=== PATIENT | female | born 1990 | race Caucasian/White ===

== ENCOUNTER 2019-11-09 11:48 | Emergency (ER) | payer OTHER, SELFPAY ==
--- NOTE | ~2019-11-09 | XR_ITS ---
EXAMINATION: XR elbow LT min 3V DATE: 11/09/2019 12:22 INDICATION: Left elbow pain. Injury. TECHNIQUE: 4 views of left elbow were obtained. COMPARISON: None. FINDINGS: Bone alignment is normal. No fracture. Joint spaces are well maintained. There is no elbow joint effusion. IMPRESSION: 1. Normal left elbow. Reviewed, dictated and finalized at location A. IMPRESSION: 1. Normal left elbow.
[2019-11-09 11:58] VITALS: BP 117/72; PULSE 107; RESP 17; TEMP 36.4; O2SAT 99
[2019-11-09] MEDS: IBUPROFEN 600 MG TABLET PO (12:04)
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
[2019-11-09 13:09] VITALS: BP 116/78; PULSE 101; RESP 16; O2SAT 100
== END 2019-11-09 13:10 | disposition home or self-care (01) ==
PROVIDERS: Emergency Provider Emergency Medicine
DX: S50.02XA Contusion of left elbow, initial encounter (principal); Y04.2XXA Assault by strike against or bumped into by another person, initial encounter
CPT/HCPCS: 73080; 99283; A9270

== ENCOUNTER 2021-12-13 11:12 | Emergency (ER) | payer BC, OTHER, SELFPAY ==
[2021-12-13 11:24] VITALS: BP 104/65; PULSE 64; RESP 18; TEMP 36.3; O2SAT 100
--- NOTE | 2021-12-13 12:15 | ED.GENADULT ---
HPI - General Adult General Chief complaint: Dental/Oral Stated complaint: Gum pain, swollen Source: patient Mode of arrival: ambulatory History of Present Illness HPI narrative: Patient presents for evaluation of left lower dental pain for the last 2 days. She had a dental extraction performed 2 days ago. She was not given antibiotics. She states in the past amoxicillin has caused vaginal candidiasis. Clindamycin has been effective in the past. She reports constant, throbbing, 7 out of 10 pain in the left side of her jaw with radiation into her neck. No fever, chills, nausea, vomiting. History of tubal ligation. She is taking [id number] anti-inflammatories without considerable improvement in her symptoms or after. No additional complaints or concerns Related Data Home Medications Medication Instructions Recorded Confirmed citalopram 40 mg tablet (Celexa) 40 mg PO DAILY 12/13/21 12/13/21 Allergies Allergy/AdvReac Type Severity Reaction Status Date / Time No Known Allergies Allergy Verified 12/13/21 11:53 Review of Systems Review of Systems: CONSTITUTIONAL: Denies fever, chills, or sweats. EYES: Denies visual changes, redness, or discharge. ENT: Reports left lower dental pain and jaw pain. Denies rhinorrhea, congestion, sore throat, or otalgia. CARDIOVASCULAR: Denies chest pain, palpitations, or edema. RESPIRATORY: Denies cough or dyspnea. GASTROINTESTINAL: Denies abdominal pain, nausea, vomiting, or diarrhea. GENITOURINARY: Denies dysuria or hematuria. SKIN: Denies rash or itching. MUSCULOSKELETAL: Denies back pain, joint pain, or myalgia. NEUROLOGIC: Denies headache, numbness, dizziness, or weakness. PSYCHIATRIC: Denies anxiety or depression. [facility] Past Medical History Medical History (Updated 12/13/21 @ 12:18 by DARLEEN Coleman, EAGLE) Pain, dental Surgical History Surgical History History of tubal ligation Family History Family History Father Family history of bipolar disorder Grandparent Hypertension Social History Social History Smoking packs per day: 1 Smoking cigarettes per day: 20.0 Smoking status: Current every day smoker Alcohol intake: current Substance use: never Living arrangements: with family Gender identity (if verbalized by the patient): Female Sexual Orientation (if Verbalized by the Patient): Straight or Heterosexual Spiritual care concerns: No Exam Narrative: GENERAL: Well-appearing, well-nourished, and in no acute distress. HEAD: Normocephalic, atraumatic. EYES: PERRLA and EOMI. ENT: Nares clear, no rhinorrhea or epistaxis. Mucous membranes moist. Oropharynx without tonsillar hypertrophy exudate or other lesions. Tooth #19 is absent. There is some swelling in the gumline adjacent to that. Bilateral TMs pearly aly nonbulging NECK: Supple. No adenopathy or masses. No carotid bruits or JVD CHEST: Clear to auscultation. No respiratory distress. No wheezes rales or rhonchi HEART: Regular rate and rhythm. No murmur heard. Normal peripheral pulses. ABDOMEN: Soft, nontender, nondistended, normal active bowel sounds. EXTREMITIES: Normal range of motion. No edema. SKIN: Warm, dry, no rash. NEURO: No focal deficits. Alert and oriented x3. PSYCH: Normal mood and affect. Course Course Emergency Course: This is a 30-year-old female who presented for evaluation of left-sided dental pain after recent dental extraction. Will discharge with clindamycin and tramadol. She can continue with NSAIDs. Will DC with a tablet of fluconazole which she can take after antibiotics as she has had vaginal candidiasis in the past. She should follow-up with her dentist. Go to the ER for worsening swelling or signs of infection. Patient is in agreement with plan of care. Level of Care:
== END 2021-12-13 12:15 | disposition home or self-care (01) ==
PROVIDERS: Emergency Provider Nurse Practitioner
DX: K08.89 Other specified disorders of teeth and supporting structures (principal); F17.210 Nicotine dependence, cigarettes, uncomplicated
CPT/HCPCS: 99213; G0463

== ENCOUNTER 2022-01-08 08:16 | Emergency (ER) | payer BC, OTHER, SELFPAY ==
--- NOTE | ~2022-01-08 | CT_ITS ---
EXAMINATION: CTA brain carotid DATE: 01/08/2022 09:48 CDT INDICATION: Severe right-sided headache. TECHNIQUE: Computed tomographic angiography (CTA) of the head was performed without and with 100 mL O mnipaque-350 intravenous contrast. CTA of the neck was performed with intravenous contrast. The dose- length product was 1541.94 mGy-cm. Maximum intensity projection and volume rendered 3D-reconstruction s were created by the technologist on a separate workstation. Automated exposure control and iterativ e reconstruction technique were employed. COMPARISON: None. FINDINGS: HEAD CT/CTA: Normal brain parenchymal volume. Normal aly-white differentiation. No acute infarction, hemorrhage, mass or mass effect. No ventriculomegaly or midline shift. Paranasal sinuses and mastoid s are pneumatized. The anterior, middle and posterior cerebral arteries are symmetric without signifi cant stenosis, occlusion or aneurysm. Basilar artery is normal. Vertebral arteries within normal limi ts. The anterior and bilateral posterior communicating arteries are present. NECK CTA: Mild emphysema at the lung apices. No cervical lymphadenopathy. The aortic arch, great vess els, common carotid, external carotid, internal carotid and vertebral arteries are within normal limi ts. No significant stenosis, occlusion, dissection are identified. There is 0% stenosis of the proximal right internal carotid artery relative to normal distal artery l umen diameter (NASCET criteria). There is 0% stenosis of the proximal left internal carotid artery re lative to normal distal artery lumen diameter. IMPRESSION: 1: Normal CTA of the head and neck. Reviewed, dictated and finalized at location B.
[2022-01-08 08:21] VITALS: BP 110/63; PULSE 57; RESP 16; TEMP 36.4; O2SAT 100
[2022-01-08 08:58] LABS: Basophils Percent Auto 0.5 % (0.2-1.2); Eosinophils Absolute Auto 0.1 K/mm3 (0-0.3); Eosinophils Percent Auto 1.5 % (0-4.4); Hematocrit 31.4 % (37.0-47.0); Hemoglobin 10.2 g/dL (12.0-15.0); Immature Granulocyte Absolute 0.01 K/mm3 (0.00-0.031); Immature Granulocyte Percent A 0.2 % (0-0.5); Lymphocytes Absolute Auto 1.81 K/mm3 (0.9-3.2); Lymphocytes Percent Auto 30.3 % (18.3-44.2); Mean Corpuscular HGB Conc 32.5 g/dl (32-36); Mean Corpuscular Hemoglobin 27.9 pg (26-34); Mean Corpuscular Volume 85.8 fl (80-100); Mean Platelet Volume 9.2 fl (7.4-10.4); Monocytes Absolute Auto 0.4 K/mm3 (0.1-0.6); Monocytes Percent Auto 7.4 % (2.6-8.5); Neutrophils Absolute Auto 3.6 K/mm3 (1.3-6.7); Neutrophils Percent Auto 60.1 % (45.5-73.1); Platelet Count Result 244 k/mm3 (150-375); Red Blood Count 3.66 M/mm3 (4.2-5.4); Red Cell Distribution Width 15.6 % (11.5-14.5)
[2022-01-08] MEDS: diphenhydrAMINE HCl INJ 50 MG/ML VIAL 25 MG IV PUSH (08:59)
[2022-01-08] MEDS: METOCLOPRAMIDE HCL INJ 10 MG/2 ML VIAL IV PUSH (09:00)
[2022-01-08 09:12] LABS: Anion Gap 5 mmol/L (8-16); Blood Urea Nitrogen 11 mg/dL (7-17); Calcium 8.2 mg/dL (8.4-10.2); Carbon Dioxide 26 mmol/L (22-30); Chloride 107 mmol/L (98-107); Estimated CRCL calculation 90 ml/min; Estimated Glomerular Filt Rate > 60; Glucose 96 mg/dL (65-110); Sodium 138 mmol/L (137-145)
--- NOTE | 2022-01-08 09:54 | ED.HA ---
HPI - Headache General Chief Complaint: Headache Stated Complaint: Migraine BASILIO Time Seen by Provider: 01/08/22 08:21 History of Present Illness HPI Narrative: Patient has had history of headaches however 2 days ago had much more severe headache, states it seems to be concentrated behind her right eye, she had gone to an outside hospital and had gotten some medications that did not work. Has never had such bad headaches before, she states that it is associated with some decreased vision in her right eye and a sensation of tingling in her right arm. Also endorses nausea and vomiting and photophobia. Related Data Home Medications Medication Instructions Recorded Confirmed citalopram 40 mg tablet (Celexa) 40 mg PO DAILY 12/13/21 12/13/21 Allergies Allergy/AdvReac Type Severity Reaction Status Date / Time No Known Allergies Allergy Verified 12/13/21 11:53 Review of Systems Review of Systems: CONST: No fever. HEENT: Right eye blurry C/V: No chest pain RESP: No cough GI: nausea : No dysuria. M/S: No joint pain. SKIN: No rash. NEURO: Headache PSYCH: [No depression] [facility] Past Medical History Medical History Pain, dental Surgical History Surgical History History of tubal ligation Family History Family History Father Family history of bipolar disorder Grandparent Hypertension Social History Social History Smoking packs per day: 1 Smoking cigarettes per day: 20.0 Smoking status: Current every day smoker Alcohol intake: current Substance use: never Gender identity (if verbalized by the patient): Female Sexual Orientation (if Verbalized by the Patient): Straight or Heterosexual Spiritual care concerns: No Exam Narrative: EXAMINATION OF ORGAN SYSTEMS/BODY AREAS: Constitutional: Vital signs per nursing GENERAL: Appears uncomfortable, laying in the dark HEAD: Normal with no signs of head trauma. EYES: EOMI, conjunctiva normal, PERRL ENT: Hearing grossly intact LUNGS: Nonlabored breathing. HEART: [Regular rate and rhythm] ABD: [Soft], [nontender to palpation] EXT: Normal range of motion SKIN: [No rashes or lesions.] NEURO: [Alert and oriented x 3. No facial asymmetry; no focal sensory or strength deficits, no pronator drift. CN 2-12 normal. Ambulating with normal steady gait] PSYCH: Normal affect Course Vital Signs Vital signs: Vital Signs Temperature 97.5 F L 01/08/22 08:21 Pulse Rate 57 L 01/08/22 08:21 Respiratory Rate 16 01/08/22 08:21 Blood Pressure 110/63 01/08/22 08:21 Pulse Oximetry 100 01/08/22 08:21 Oxygen Delivery Room Air 01/08/22 08:21 Temperature 97.5 F L 01/08/22 08:21 Pulse Rate 62 01/08/22 11:09 Respiratory Rate 20 01/08/22 11:09 Blood Pressure 101/71 01/08/22 11:09 Pulse Oximetry 98 01/08/22 11:09 Oxygen Delivery Room Air 01/08/22 08:21 MDM - Headache MDM Narrative Medical decision making narrative: 31-year-old female presents to the emergency department for headache. Patient is hemodynamically stable. No focal neurological or cranial nerve deficits on exam. No meningeal signs. The headache was gradual in onset, it is not exertional and does not appear consistent with subarachnoid hemorrhage or intracranial bleeding. No trauma. Patient is given headache cocktail including Reglan, Benadryl, Toradol. As this is a new headache for her I did obtain imaging which is negative. On reevaluation, the patient feels significantly better with the headache resolved. No neurological deficits. Patient is comfortable going home for outpatient follow-up with primary care physician and/or neurology and provided with strict return precautions, especially for worsening headaches, neck pain/stiffness, fever or weakness, numbness/tingling or
[2022-01-08 11:09] VITALS: BP 101/71; PULSE 62; RESP 20; O2SAT 98
== END 2022-01-08 11:10 | disposition home or self-care (01) ==
PROVIDERS: Emergency Provider Emergency Medicine
DX: G43.909 Migraine, unspecified, not intractable, without status migrainosus (principal); F17.210 Nicotine dependence, cigarettes, uncomplicated
CPT/HCPCS: 36415; 70496; 70498; 80048; 85025; 96374; 96375; 99284; J1200; J2765; Q9967

== ENCOUNTER 2022-01-28 05:15 | Emergency (ER) | payer OTHER, SELFPAY ==
[2022-01-28 05:26] VITALS: BP 107/64; PULSE 60; RESP 14; TEMP 36.6; O2SAT 99
--- NOTE | 2022-01-28 05:34 | ED.URI ---
HPI - URI/Sore Throat General Chief Complaint: Upper Respiratory Infection Stated Complaint: I might have COVID Time Seen by Provider: 01/28/22 05:28 History of Present Illness HPI Narrative: This is a 31-year-old female with no significant past medical history, who presents to the emergency department complaining of upper respiratory congestion, myalgias, headache and cough. She states she feels as though she has COVID once more. She was last diagnosed in June of this year. She is vaccinated. She complains of nausea; she states she vomited twice yesterday but has since been able to tolerate fluids. She denies diarrhea, loss of consciousness, or chest pain. Related Data Home Medications Medication Instructions Recorded Confirmed citalopram 40 mg tablet (Celexa) 40 mg PO DAILY 12/13/21 12/13/21 Allergies Allergy/AdvReac Type Severity Reaction Status Date / Time No Known Allergies Allergy Verified 12/13/21 11:53 Review of Systems Review of Systems: CONSTITUTIONAL: fever, chills, Denies sweats. EYES: Denies visual changes, redness, or discharge. ENT: rhinorrhea, congestion, sore throat, or otalgia. CARDIOVASCULAR: Denies chest pain, palpitations, or edema. RESPIRATORY: cough Denies dyspnea. GASTROINTESTINAL: nausea, vomiting Denies abdominal pain or diarrhea. GENITOURINARY: Denies dysuria or hematuria. SKIN: Denies rash or itching. MUSCULOSKELETAL: myalgia Denies back pain, joint pain NEUROLOGIC: headache Denies numbness, dizziness, or weakness. PSYCHIATRIC: Denies anxiety or depression. [facility] Past Medical History Medical History Pain, dental Surgical History Surgical History History of tubal ligation Family History Family History Father Family history of bipolar disorder Grandparent Hypertension Social History Social History Smoking packs per day: 1 Smoking cigarettes per day: 20.0 Smoking status: Current every day smoker Alcohol intake: current Substance use: never Gender identity (if verbalized by the patient): Female Sexual Orientation (if Verbalized by the Patient): Straight or Heterosexual Spiritual care concerns: No Exam Narrative: GENERAL: Well-developed, well-nourished, appears fatigued. HEAD: Normocephalic, atraumatic. EYES: PERRLA and EOMI. ENT: Nares clear, no rhinorrhea or epistaxis. Mucous membranes moist. Oropharynx without tonsillar hypertrophy exudate or other lesions. Bilateral TMs with air-fluid levels noted, no significant erythema, nonbulging NECK: Supple. No adenopathy or masses. No carotid bruits or JVD CHEST: Clear to auscultation. No respiratory distress. No wheezes rales or rhonchi HEART: Regular rate and rhythm. No murmur heard. Normal peripheral pulses. ABDOMEN: Soft, nontender, nondistended, normal active bowel sounds. EXTREMITIES: Normal range of motion. No edema. SKIN: Warm, dry, no rash. NEURO: No focal deficits. Alert and oriented x3. PSYCH: Normal mood and affect. Course Course Emergency Course: 06:15 - COVID and flu swabs negative. Reassessed patient, she states she has mildly improved. She is comfortable to discharge. Discussed return emergency precautions including signs/symptoms of respiratory distress, intractable vomiting and sepsis. Patient voiced understanding and is comfortable with the plan. All questions answered to her satisfaction. Vital Signs Vital signs: Vital Signs Temperature 97.9 F 01/28/22 05:26 Pulse Rate 60 01/28/22 05:26 Respiratory Rate 14 01/28/22 05:26 Blood Pressure 107/64 01/28/22 05:26 Pulse Oximetry 99 01/28/22 05:26 Oxygen Delivery Room Air 01/28/22 05:26 Temperature 97.9 F 01/28/22 05:26 Pulse Rate 53 L 01/28/22 06:25 Respiratory Rate 14 01/28/22 06:25 Blood Pressure 1
--- NOTE | 2022-01-28 05:39 | PC.NURSE ---
Called and spoke with Britt in lab to add flu swab to covid swab in lab
[2022-01-28] MEDS: ACETAMINOPHEN 500 MG TABLET 1000 MG PO (05:43)
[2022-01-28 06:04] LABS: Influenza A QL RT-PCR Negative (Negative); Influenza B QL RT-PCR Negative (Negative); SARS-CoV-2 RNA PCR Negative
[2022-01-28 06:25] VITALS: BP 101/50; PULSE 53; RESP 14; O2SAT 100
== END 2022-01-28 06:25 | disposition home or self-care (01) ==
PROVIDERS: Emergency Provider Preventive Medicine Aerospace Medicine
DX: J06.9 Acute upper respiratory infection, unspecified (principal); R11.2 Nausea with vomiting, unspecified; F17.210 Nicotine dependence, cigarettes, uncomplicated; Z20.822 Contact with and (suspected) exposure to COVID-19
CPT/HCPCS: 87502; 99283; A9270; C9803; U0003; U0005

== ENCOUNTER 2023-03-22 08:00 | Emergency (ER) | payer OTHER, SELFPAY ==
--- NOTE | ~2023-03-22 | CT_ITS ---
EXAMINATION: CT brain wo con DATE: 03/22/2023 10:05 INDICATION: Migraine headache. Lightheadedness. TECHNIQUE: Computed tomography (CT) of the head was performed without intravenous contrast. The mA wa s adjusted according to patient size. Iterative reconstruction technique was employed. The dose-lengt h product was 605.33 mGy-cm. COMPARISON: Head CT 01/08/2022 FINDINGS: There is no intracranial hemorrhage, acute infarction, or abnormal intracranial mass lesion . The ventricles are normal in size. There is mucosal thickening in the paranasal sinuses. The mastoi d air cells are normal. The orbits are normal. IMPRESSION: 1. Normal brain. Reviewed, dictated and finalized at location E. IMPRESSION: 1. Normal brain.
--- NOTE | ~2023-03-22 | XR_ITS ---
XR chest 2V DATE: 03/22/2023 10:09 INDICATION: Cough for several months. TECHNIQUE: PA and lateral views COMPARISON: None FINDINGS: Normal heart size. No hilar or mediastinal enlargement. No pulmonary infiltrate or consolid ation, pleural effusion or pulmonary vascular congestion or pneumothorax. Surgical clips, right upper quadrant, consistent with cholecystectomy. Included skeletal structures are unremarkable other than mild upper thoracic levoscoliosis. IMPRESSION: No active cardiopulmonary disease Status post cholecystectomy Reviewed, dictated and finalized at location L.
[2023-03-22 08:12] VITALS: BP 103/64; PULSE 64; RESP 20; TEMP 36.8; O2SAT 100
[2023-03-22 08:57] LABS: Influenza A QL RT-PCR Negative (Negative); Influenza B QL RT-PCR Negative (Negative); SARS-CoV-2 RNA PCR Negative (Negative)
--- NOTE | 2023-03-22 09:35 | ED.GENADULT ---
HPI - General Adult General Chief complaint: Upper Respiratory Infection Stated complaint: dizzy, lightheaded, cough Time Seen by Provider: 03/22/23 09:14 Source: patient Mode of arrival: ambulatory Limitations: no limitations History of Present Illness HPI narrative: Patient is a 32-year-old female who presents ED with multiple complaints. Patient reports she has had ongoing intermittent HAs for the last several months. She had not had a BASILIO in the last 2 weeks, but developed a BASILIO 2 days ago which has persisted since then. Pain is intermittent but more severe than usual. Seems to be centered in her forehead whereas her previous headaches were usually left or right-sided. She states this headache feels differently. She has been previously evaluated at an outside hospital for this and given Reglan and Benadryl. Patient reports this morning at work she began feeling dizzy and lightheaded while moving heavy objects. She felt somewhat near syncopal, but did not lose consciousness. She left work and was told she would need a work note to come back. Patient denies feeling lightheaded currently. Patient also reports having a cough for the last 8 months, sore throat. Denies fevers, chest pain, shortness of breath, vision changes, nausea, vomiting. Patient does admit to be under significant increased stress recently. She notes she has a psychiatrist appointment upcoming. Denies SI or HI. Related Data Home Medications Medication Instructions Recorded Confirmed citalopram 40 mg tablet (Celexa) 40 mg PO DAILY 12/13/21 12/13/21 Allergies Allergy/AdvReac Type Severity Reaction Status Date / Time No Known Allergies Allergy Verified 12/13/21 11:53 Review of Systems Review of Systems: CONSTITUTIONAL: Denies fever, chills, or sweats. EYES: Denies visual changes. ENT: See HPI. CARDIOVASCULAR: Denies chest pain. RESPIRATORY: See HPI. GASTROINTESTINAL: Denies abdominal pain, nausea, vomiting, or diarrhea. NEUROLOGIC: See HPI. PSYCHIATRIC: See HPI. All systems reviewed & are unremarkable except as noted in HPI and below PMFSH Past Medical History Medical History Pain, dental Surgical History Surgical History History of tubal ligation Family History Family History Father Family history of bipolar disorder Grandparent Hypertension Social History Social History Smoking packs per day: 1 Smoking cigarettes per day: 20.0 Smoking status: Current every day smoker Alcohol intake: current Substance use: never Living arrangements: with family Gender identity (if verbalized by the patient): Female Sexual Orientation (if Verbalized by the Patient): Straight or Heterosexual Spiritual care concerns: No Exam Narrative: GENERAL: Well appearing, well-nourished, non-toxic, in no acute distress. HEAD: Normocephalic, atraumatic. ENT: Mild posterior pharynx erythema, no tonsillar hypertrophy or exudate. Uvula midline. NECK: Supple. No adenopathy, no masses. RESPIRATORY: Airway patent, respirations nonlabored. Clear to auscultation bilaterally, no rales, rhonchi, wheezing. No focal lung sounds. CARDIOVASCULAR: Regular rate and rhythm without murmurs, rubs, or gallops. Radial pulses 2+ and equal bilaterally. MUSCULOSKELETAL: Moves all extremities. Strength/ROM intact without gross deformities. SKIN: Warm, dry, normal color. No rashes. NEURO: A&O X3. Speech clear. Cranial nerves II-XII grossly intact. Steady gait. No ataxic movements. Strength equal in upper and lower extremities bilaterally. No focal deficits. PSYCHIATRIC: Somewhat flat affect. Normal interaction. Course Vital Signs Vital signs: Vital Signs Temperature 98.2 F 03/22/23 08:12 Pulse Rate 64
[2023-03-22] MEDS: ACETAMINOPHEN 500 MG TABLET 1000 MG PO (10:35)
[2023-03-22 10:58] LABS: Strep Group A RT-PCR NOT DETECTED (Negative)
== END 2023-03-22 11:08 | disposition home or self-care (01) ==
PROVIDERS: Emergency Medicine; Emergency Provider Physician Assistant
DX: G43.909 Migraine, unspecified, not intractable, without status migrainosus (principal); J06.9 Acute upper respiratory infection, unspecified; R42 Dizziness and giddiness; F17.210 Nicotine dependence, cigarettes, uncomplicated; Z20.822 Contact with and (suspected) exposure to COVID-19
CPT/HCPCS: 70450; 71046; 87636; 87651; 99284; A9270

== ENCOUNTER 2024-01-30 12:22 | Emergency (ER) | payer OTHER, SELFPAY ==
--- NOTE | 2024-01-30 12:39 | ECG_ITS ---
Test Date: 2024-01-30 12:48:13 Measurements Intervals Shushan Rate: 48 P: 58 CT: 136 QRS: 65 QRSD: 82 T: 73 QT: 461 QTc: 414 Interpretive Statements SINUS BRADYCARDIA RSR' IN V1 OR V2, PROBABLY NORMAL VARIANT ABNORMAL ECG No previous ECG available for comparison Electronically Signed On 01-30-2024 14:14:39 CDT by Bert Heath D.O.
[2024-01-30 12:40] VITALS: BP 115/76; PULSE 61; RESP 16; TEMP 36.6; O2SAT 100
--- NOTE | 2024-01-30 12:49 | ED.URI ---
HPI - URI/Sore Throat General Chief Complaint: Upper Respiratory Infection Stated Complaint: Chest Pain/Cough/Sore Throat Source: patient Mode of arrival: ambulatory Limitations: no limitations History of Present Illness HPI Narrative: 33-year-old female presented for complaint of left lower rib pain along with nasal congestion and cough about 1 month Endorses exposure to influenza. Also reports chronic nausea, taking ondansetron. Denies shortness of breath, wheezing, vomiting, fevers or chills. Not taking anything for symptoms. Endorses increase in stress. Related Data Home Medications Medication Instructions Recorded Confirmed citalopram 40 mg tablet (Celexa) 40 mg PO DAILY 12/13/21 01/30/24 lorazepam 1 mg tablet 1 mg PO PRN PRN Anxiety 01/30/24 01/30/24 Allergies Allergy/AdvReac Type Severity Reaction Status Date / Time No Known Allergies Allergy Verified 05/27/23 13:53 Review of Systems Review of Systems: CONSTITUTIONAL: Denies body aches, fever, chills, or sweats. EYES: Denies visual changes, redness, or discharge. ENT: Denies rhinorrhea, congestion, sore throat, or otalgia. CARDIOVASCULAR: Denies chest pain, palpitations, or edema. RESPIRATORY: Reports cough, denies sob, wheezing. GASTROINTESTINAL: Denies abdominal pain, nausea, vomiting, or diarrhea. SKIN: Denies rash, itching, or wounds. MUSCULOSKELETAL: reports left rib pain Denies back pain, joint pain NEUROLOGIC: Denies headache, numbness, tingling, or weakness. All systems reviewed & are unremarkable except as noted in HPI and below PMFSH Past Medical History Medical History Pain, dental Surgical History Surgical History History of tubal ligation Family History Family History Father Family history of bipolar disorder Grandparent Hypertension Social History Social History Smoking packs per day: 1 Smoking cigarettes per day: 20.0 Smoking status: Current every day smoker Alcohol intake: current Substance use: never Living arrangements: with family Gender identity (if verbalized by the patient): Female Sexual Orientation (if Verbalized by the Patient): Straight or Heterosexual Spiritual care concerns: No Comments At time of signature, I have reviewed and agree with nursing past medical, surgical, social and family history unless otherwise noted. Please see nursing chart for further information. There is no relevant family history pertinent to the presenting complaint Exam Narrative: GENERAL: Well-appearing, in no acute distress. EYES: EOMI. No redness or drainage. Conjunctivae normal. ENT: Mucous membranes pink and moist. No rhinorrhea. CHEST: No respiratory distress. lungs clear to all escalante. Tender to palpation left medial lower rib area approx ribs 7-8. No deformity, bruising, swelling or rash. HEART: Regular rate and rhythm. No murmur appreciated. ABDOMEN: Soft, nontender, nondistended, normal active bowel sounds. EXTREMITIES: Normal range of motion. No edema. SKIN: Warm, dry, no rash. Capillary refill normal. Normal skin turgor. NEURO: Alert and oriented x3. Gait steady. PSYCH: Normal affect. Course Course Emergency Course: Patient is aware of diagnosis, understands and agrees to treatment plan. Anticipatory guidance given. Patient agrees to follow-up as directed and is aware of reasons to seek care at the emergency department. Portions of this record may have been created with voice recognition software Level of Care: Express Care Visit Vital Signs Vital signs: Vital Signs Temperature 97.9 F 01/30/24 12:40 Pulse Rate 61 01/30/24 12:40 Respiratory Rate 16 01/30/24 12:40 Blood Pressure 115/76 01/30/24 12:40 Pulse Oximetry 100 01/30/24 12:40 Oxygen
[2024-01-30 12:57] LABS: EDINFLUASCREEN Negative (Negative); EDINFLUBSCREEN Negative (Negative)
== END 2024-01-30 13:12 | disposition home or self-care (01) ==
PROVIDERS: Emergency Provider Nurse Practitioner Family
DX: R07.89 Other chest pain (principal); Z20.822 Contact with and (suspected) exposure to COVID-19; F17.210 Nicotine dependence, cigarettes, uncomplicated
CPT/HCPCS: 87426; 87804; 93005; 99213; G0463

== ENCOUNTER 2024-06-04 16:09 | Emergency (ER) | payer OTHER, SELFPAY ==
[2024-06-04 16:12] VITALS: BP 119/62; PULSE 81; RESP 16; TEMP 36.3; O2SAT 100
--- NOTE | 2024-06-04 16:30 | ED_ITS ---
HPI - URI/Sore Throat General Chief Complaint: Upper Respiratory Infection Stated Complaint: cough/congestion/chest tight Source: patient Mode of arrival: ambulatory Limitations: no limitations History of Present Illness HPI Narrative: 33 y/o female presented for c/o nasal congestion, pressure, and cough. Onset 1 week. Also reports body aches and fatigue. Denies sob, wheezing, n/v/d/f/c. Related Data Home Medications ?Medication ?Instructions ?Recorded ?Confirmed ?Last Taken ?Type citalopram 40 mg tablet (Celexa) 40 mg PO DAILY 12/13/21 01/30/24 Unknown History lorazepam 1 mg tablet 1 mg PO PRN PRN Anxiety 01/30/24 01/30/24 Unknown History Allergies Allergy/AdvReac Type Severity Reaction Status Date / Time No Known Allergies Allergy Verified 06/04/24 16:35 Review of Systems Review of Systems: CONSTITUTIONAL: reports body aches,denies fever, chills, or sweats. EYES: Denies visual changes, redness, or discharge. ENT: reports rhinorrhea, congestion, sore throat, denies otalgia. CARDIOVASCULAR: Denies chest pain, palpitations, or edema. RESPIRATORY: Reports cough, denies sob, wheezing. SKIN: Denies rash MUSCULOSKELETAL: Denies back pain, joint pain, or myalgia. NEUROLOGIC: Denies headache, numbness, tingling, or weakness. All systems reviewed & are unremarkable except as noted in HPI and below PMFSH Past Medical History Medical History Pain, dental Surgical History Surgical History History of tubal ligation Family History Family History Father Family history of bipolar disorder Grandparent Hypertension Social History Social History Smoking packs per day: 1 Smoking cigarettes per day: 20.0 Smoking status: Current every day smoker Alcohol intake: current Substance use: never Living arrangements: with family Gender identity (if verbalized by the patient): Female Sexual Orientation (if Verbalized by the Patient): Straight or Heterosexual Spiritual care concerns: No Comments At time of signature, I have reviewed and agree with nursing past medical, surgical, social and family history unless otherwise noted. Please see nursing chart for further information. There is no relevant family history pertinent to the presenting complaint Exam Narrative: GENERAL: Well-appearing, in no acute distress. EYES: EOMI. No redness or drainage. Conjunctivae normal. ENT: Mucous membranes pink and moist. rhinorrhea. TMs normal bilaterally. Throat normal. Uvula midline. NECK: Normal AROM. Supple. CHEST: No respiratory distress. Lungs clear to all escalante. HEART: Regular rate and rhythm. SKIN: Warm, dry, no rash. Capillary refill normal. Normal skin turgor. NEURO: Alert and oriented x3. Gait steady. PSYCH: Normal affect. Course Course Emergency Course: Patient is aware of diagnosis, understands and agrees to treatment plan. Anticipatory guidance given. Patient agrees to follow-up as directed and is aware of reasons to seek care at the emergency department. Portions of this record may have been created with voice recognition software Level of Care: Express Care Visit Vital Signs Vital signs: Vital Signs Temperature 97.4 F L 06/04/24 16:12 Pulse Rate 81 06/04/24 16:12 Respiratory Rate 16 06/04/24 16:12 Blood Pressure 119/62 06/04/24 16:12 Pulse Oximetry 100 06/04/24 16:12 Oxygen Delivery Room Air 06/04/24 16:12 Temperature 97.4 F L 06/04/24 16:12 Pulse Rate 81 06/04/24 16:12 Respiratory Rate 16 06/04/24 16:12 Blood Pressure 119/62 06/04/24 16:12 Pulse Oximetry 100 06/04/24 16:12 Oxygen Delivery Room Air 06/04/24 16:12 MDM - URI/Sore Throat MDM Narrative Medical decision making narrative: Discussed physical exam findings. Negative flu and COVID. Rx ABX for URI sx >1week. Advised supportive measures and signs/symptoms to go to the ER. Pt is appropriate for outpt treatment and f/u. Differential Diagnosis Differential diagnosis: Likely upper respiratory infection, otitis media, sinusitis, viral infection, bronchitis, influenza and pharyngitis Lab Data Labs: Lab Results 06/04/24 Range/Units 16:25 POC Influenza A Ag Negative (Negative) POC Influenza B Ag Negative (Negative) POC SARS CoV-2 Ag Negative (Negative) Discharge Plan Discharge Clinical Impression: Upper respiratory infection Patient Disposition: Home, Self-Care Condition: Stable Instructions: Antibiotic Form, Upper Respiratory Infection (ED) Additional Instructions: Flu and COVID negative. Recommendations: Flonase spray and Zyrtec (or Claritin/Sherry) over the counter Cough syrup may cause drowsiness; avoid driving or take it at night time. Tylenol 1000mg every 8 hours as needed for pain Symptomatic treatment includes: rest, fluids, and increase humidity of the air at home. Follow up with your primary care provider in 1 week. Go to the ER for worsening symptoms or concerns. Patient Language: Faroese Prescriptions: New amoxicillin-pot clavulanate 875-125 mg tablet 1 tablet PO Q12H 7 Days Qty: 14 0RF No Action lorazepam 1 mg tablet 1 mg PO PRN PRN (Reason: Anxiety) citalopram [Celexa] 40 mg Tablet 40 mg PO DAILY Follow-up/Referrals: Lasha,MD Neal [Primary Care Provider] - Stand Alone Forms: Work/School Release IP Time of Disposition: 16:51
[2024-06-04 16:48] LABS: EDCOVIDSCREEN Negative (Negative); EDINFLUASCREEN Negative (Negative); EDINFLUBSCREEN Negative (Negative)
== END 2024-06-04 16:55 | disposition home or self-care (01) ==
PROVIDERS: Emergency Provider Nurse Practitioner Family; PCP Family Medicine
DX: J06.9 Acute upper respiratory infection, unspecified (principal); Z20.822 Contact with and (suspected) exposure to COVID-19; F17.210 Nicotine dependence, cigarettes, uncomplicated
CPT/HCPCS: 87426; 87804; 99213; G0463